=== PATIENT | female | born 1980 | race Caucasian/White ===

== ENCOUNTER 2017-02-04 08:28 | Emergency (ER) | payer OTHER ==
[~2017-02-04] VITALS: Ht 172.7 cm; Wt 117.9 kg
== END 2017-02-04 09:52 | disposition home or self-care (01) ==
LOC: ED 08:28
DX: S90.512A Abrasion, left ankle, initial encounter (principal); S00.81XA Abrasion of other part of head, initial encounter; S09.90XA Unspecified injury of head, initial encounter; E03.9 Hypothyroidism, unspecified; Z98.51 Tubal ligation status; Z90.49 Acquired absence of other specified parts of digestive tract; W01.0XXA Fall on same level from slipping, tripping and stumbling without subsequent striking against object, initial encounter
CPT/HCPCS: 99282

== ENCOUNTER 2019-03-09 11:12 | Emergency (ER) | payer OTHER ==
[~2019-03-09] VITALS: Ht 172.7 cm; Wt 117.9 kg
--- OUTSIDE RECORDS SUMMARY | 2019-03-09 11:14 | XMS ---
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 Shae has no Care Guidelines for this patient. [place] VISIT COUNT (12 MO.) 1 SUREKHA Quiñonez TOTAL 1 NOTE: Visits indicate total known visits. ED/C VISIT TRACKING (12 MO.) 03/09/2019 11:12 SUREKHA Yin OR TYPE: Emergency COMPLAINT: - LEFT ANKLE INJURY INPATIENT VISIT TRACKING (12 MO.) No inpatient visits to display in this time frame [email or web address]
[2019-03-09] MEDS ORDERED: CRUTCH1 EACH (12:52)
== END 2019-03-09 13:40 | disposition home or self-care (01) ==
LOC: ED 11:12
DX: S93.402A Sprain of unspecified ligament of left ankle, initial encounter (principal); E03.9 Hypothyroidism, unspecified; W01.0XXA Fall on same level from slipping, tripping and stumbling without subsequent striking against object, initial encounter
CPT/HCPCS: 73610; 99283-25; A9270

== ENCOUNTER 2019-08-24 06:30 | Day surgery (SDC) | payer OTHER ==
[~2019-08-24] VITALS: Ht 170.2 cm; Wt 122.5 kg
[~2019-08-24 06:30] MED LIST: CRUTCH1 EACH
[2019-08-24] MEDS ORDERED: WELLBUTRIN SR150 MG PO (07:16)
[2019-08-24] MEDS ORDERED: SYNTHROID150 MCG PO (07:16)
--- NOTE | 2019-08-24 08:26 | NUR ---
08/24/19 0826 Susie Borja 0817 PT ARRIVED TO PACU, PT WAKES EASILY TO VERBAL STIMULI AND IS REORIENTED TO PACU. PT FALLS BACK TO SLEEP. VSS. PT ON 3L VIA NC AND RESP EVEN AND UNLABORED. 0821 O2 TURNED OFF AND PT CONTINEUS TO SLEEP. 0824 MD AT BEDSIDE TALKING TO PT.
--- NOTE | 2019-08-24 22:30 | OR ---
[facility] [address] [place], [place] [address] Signed DATE OF OPERATION: 08/24/2019 SURGEON: Remi Quinn MD PREOPERATIVE DIAGNOSES: Clinical treatment for posterior anal fissure (clinically healed), history of rectal bleeding. POSTOPERATIVE DIAGNOSIS: Normal colon to cecum except for hypertrophied anal papillae, no evidence of fissure, polyps, or colitis. PROCEDURE: Total colonoscopy to cecum. ANESTHESIA: Intravenous sedation, fentanyl 150 mcg and Versed 6 mg. INDICATION: This morbidly obese 39-year-old woman is a patient of Dr. Tammy Salas and was seen and evaluated for rectal bleeding and found to have a posterior anal fissure. She was managed with diltiazem, fiber supplements, and so on. Clinical healing has been noted. Since she does still have some episodic rectal bleeding, colonoscopy has been recommended. The risks of bleeding, infection, and perforation related to colonoscopy was reviewed with her, she understands and wished to proceed. FINDINGS: The prep was excellent. Complete colonoscopy was undertaken of the cecum. There was no sign of polyps, diverticular formation, colitis, or cancer. There was a hypertrophied anal papillae, but no sign of fissure or internal hemorrhoidal change. There were some external hemorrhoidal tags however. DESCRIPTION OF PROCEDURE: The patient was brought to the endoscopy suite and placed in lateral decubitus position, given intravenous sedation to the point of slurred speech and nystagmus. Digital rectal examination revealed a nodular change consistent with anal papilla. An Olympus video colonoscope was passed in the rectum and manipulated throughout the colon ultimately intubating the cecum. Ileocecal valve was identified. Irrigation was undertaken. Biopsy forceps was used to elevate the cecal mucosa behind the ileocecal valve, showing no sign of abnormality. The scope was then carefully withdrawn and examination Electronically Signed By: REMI QUINN MD 08/24/19 2230 PATIENT NAME: REINALDO GIRALDO OPERATIVE REPORT DATE OF : 82 REPORT #: [id number] PHYSICIAN: REMI QUINN MD PCP: GUERLINE CRUZ PAC REPORT IS CONFIDENTIAL AND NOT TO BE RELEASED WITHOUT AUTHORIZATION [facility] [address] [place], [place] [address] Signed throughout showed no sign of polyps, diverticular formation, colitis, or cancer. Retroflex view confirmed an anal papilla that was hypertrophied. Careful withdrawal of scope through the anal canal showed no sign of fissure or other acute problem. The scope was removed and the patient was taken to the recovery room in good condition. CONCLUSION DIAGNOSIS: Healed anal fissure, persistent anal papilla, asymptomatic. No evidence of polyps. PLAN: Recommend continued use of high-fiber diet including fiber supplements such as Citrucel. She will return to the ongoing care of Dr. Salas. MD TORITO Spaulding/DWAYNE /[id number] cc: Tammy Salas MD Copies: TAMMY SALAS MD ~ Electronically Signed By: REMI QUINN MD 08/24/19 2230 PATIENT NAME: REINALDO GIRALDO OPERATIVE REPORT DATE OF : 82 REPORT #: [id number] PHYSICIAN: REMI QUINN MD PCP: GUERLINE CRUZ PAC REPORT IS CONFIDENTIAL AND NOT TO BE RELEASED WITHOUT AUTHORIZATION
== END 2019-08-24 09:00 | disposition home or self-care (01) ==
LOC: DS 06:30 → OPS 06:30 → DS 06:45 → OPS 09:00
PROVIDERS: Surgery
PROC: 0DJD8ZZ Inspection of Lower Intestinal Tract, Via Natural or Artificial Opening Endoscopic (ICD-10-PCS; principal; 2019-08-24 06:45)
DX: K64.3 Fourth degree hemorrhoids (principal); K60.2 Anal fissure, unspecified; E03.9 Hypothyroidism, unspecified; F32.9 Major depressive disorder, single episode, unspecified; E66.01 Morbid (severe) obesity due to excess calories; Z79.899 Other long term (current) drug therapy; Z68.41 Body mass index [BMI] 40.0-44.9, adult
CPT/HCPCS: 84703; 99153; G0500; J2250; J3010

== ENCOUNTER 2019-09-06 05:45 | Day surgery (SDC) | payer OTHER ==
[~2019-09-06] VITALS: Ht 172.7 cm; Wt 123.8 kg
--- NOTE | ~2019-09-06 | OR ---
[facility] [address] [place], [place] [address] Draft DATE OF OPERATION: 09/06/2019 SURGEON: Dawn Steven DO PREOPERATIVE DIAGNOSES: 1. Pelvic organ prolapse, symptomatic. 2. Rectocele. 3. Obesity. POSTOPERATIVE DIAGNOSES: 1. Pelvic organ prolapse, symptomatic. 2. Rectocele. 3. Obesity. PROCEDURES PERFORMED: 1. Total laparoscopic hysterectomy. 2. Bilateral salpingectomy. 3. Cystoscopy. 4. Posterior repair. 5. Perineorrhaphy. BLIND INSTALLER: Gabo Corrales MD. ANESTHESIA: General. ESTIMATED BLOOD LOSS: 150 mL. SPECIMEN: Uterus, cervix, and bilateral fallopian tubes. FINDINGS: Normal external genitalia with hemorrhoids, gaping introitus with distal rectocele. The apex remains very well supported. Normal-appearing cervix. On laparoscopy, normal liver, uterus and bilateral ovaries. Fallopian tubes status post tubal ligation bilaterally. excellent apical support noted. Normal bladder with bilateral ureteral jets. Completion of posterior repair shows rectocele resolved in the vaginal hiatus, 2.5 fingerbreadths in width. PATIENT NAME: REINALDO ORTIZ OPERATIVE REPORT DATE OF : 82 REPORT #: [id number] PHYSICIAN: DAWN STEVEN DO PCP: GUERLINE CRUZ PAC REPORT IS CONFIDENTIAL AND NOT TO BE RELEASED WITHOUT AUTHORIZATION [facility] [address] [place], [place] [address], [place] [address] Draft COMPLICATIONS: None. INDICATION: Ms. Ortiz is a pleasant 39-year-old white female, who presents with longstanding symptomatic pelvic organ prolapse. She is splinting with each bowel movement and has a notable distal rectocele. The patient has completed fertility and desires definitive treatment with hysterectomy and posterior repair. Risks, benefits, and alternatives were discussed in detail. The patient understands and wished to proceed with the procedure. TECHNIQUE: The patient was taken to the operating room where a time-out was performed to confirm correct patient and correct procedure. General anesthesia was adequately established. The patient was prepped and draped in the dorsal lithotomy position with her feet in Yellofin stirrups. ICPs were on running. Patient received Ancef 3 g preoperatively as well as heparin preoperatively. A Jo catheter was inserted. Weighted speculum was placed in vagina and the anterior lip of the cervix was grasped with Allis clamp. Excellent apical support was noted. The cervix was gently dilated using Hegar dilators and a [employer] uterine manipulator was placed. Attention was then turned to the abdomen. The base of the umbilicus was infiltrated with 0.25% Marcaine with epinephrine and a 5 mm stab incision was made at the base of the umbilicus. A 5 mm port was placed under direct visualization without complication. Pneumoperitoneum was used established and survey of the abdomen pelvis was performed. A 5 mm assist port was placed in the left lower quadrant in direct visualization and 8 mm expanding assist port was placed in the right lower quadrant under direct visualization. Evidence of prior bilateral tubal ligation was noted. LigaSure device was then used to divide the fallopian tube from the mesosalpinx on the left side. The fallopian tube was then divided and delivered through the trocar. This process was repeated on the right side. The left utero-ovarian ligament was fulgurated and divided with good hemostasis. The left round ligament was then fulgurated and divided with good hemostasis. The leaves of the broad ligament were then divided with the anterior leaf divided down and the bladder pushed well below the cervical cuff. The posterior leaf of the broad ligament was then divided past the uterosacral ligament to the midline. Uterine vessels were then identified, fulgurated and divided. Small amount of oozing was noted from the left uterine artery that quickly resolved with additional fulguration. The process was repeated on the right side with division and fulguration of the utero-ovarian ligament, the round ligament, and division of the leaves of the broad ligament. The right uterine vessels were fulgurated and divided with good hemostasis. The bladder was again pushed well below the cuff and decision was made to PATIENT NAME: REINALDO ORTIZ OPERATIVE REPORT DATE OF : 82 REPORT #: [id number] PHYSICIAN: DAWN STEVEN DO PCP: GUERLINE CRUZ PAC REPORT IS CONFIDENTIAL AND NOT TO BE RELEASED WITHOUT AUTHORIZATION [facility] [address] [place] [id number] Draft proceed with colpotomy. The Sonicision device was inserted and used to perform circumferential colpotomy using the green edge of the cervical cup as a guide. The uterus and cervix were then delivered through the vagina and sent to pathology for further evaluation. The vagina was stuffed with a wet lap inside of a glove to maintain pneumoperitoneum. Attention was then turned back to the abdomen. A small amount of oozing was noted along the right edge of the vaginal cuff. This was made hemostatic with the LigaSure device. The colpotomy was then closed using V-Loc suture with an Endostitch device with careful attention to incorporate the uterosacral ligaments bilaterally as well as the vaginal epithelium with each suture. Excellent closure. Hemostasis and apical support were noted at this time. Pneumoperitoneum was reduced and trocars removed. Trocar sites were repaired using 4-0 Monocryl with excellent hemostasis and cosmesis. Attention was then turned to cystoscopy. The Jo catheter was removed. A cystoscope was then placed into the urethral meatus and advanced under direct visualization into the bladder. Normal bladder and bilateral ureteral jets were noted. The bladder was drained. Jo catheter was reinserted. Attention was then turned to the posterior repair. The patient with again excellent apical and anterior compartment support. Significant posterior rectocele was very distal with a gaping introitus noted. The perineal body was then infiltrated with 0.25% Marcaine with epinephrine and an inverted triangle of skin overlying the perineum was excised. The vaginal epithelium was then carefully dissected and incised dissecting the bladder away from the posterior vaginal wall. Blunt dissection was then used to mobilize the rectum and vaginal tissue. A very good support tissue was noted laterally and this was plicated in the midline using multiple sutures of 0 Vicryl in simple interrupted sutures. Excess vaginal tissue was trimmed. The perineal body was plicated in the midline and vaginal epithelium was then reapproximated using 2-0 Vicryl in a running nonlocked manner. The perineal incision was then reapproximated using 2-0 Vicryl after insertion of FloSeal into the space between the vagina and the rectum. Excellent hemostasis was appreciated and the rectocele was resolved. The vaginal hiatus was 2.5 fingerbreadths in width. The patient was then taken to the PACU in good and stable condition. After excellent hemostasis, a rectal exam was performed that demonstrated no sutures in the rectum or any other masses. Sponge, needle, and instrument counts were correct x2 at the end of the procedure. Dr. Corrales was present, participated in all portions of procedure. Dawn Steven, DO PATIENT NAME: REINALDO ORTIZ OPERATIVE REPORT DATE OF : 82 REPORT #: [id number] PHYSICIAN: DAWN STEVEN DO PCP: GUERLINE CRUZ PAC REPORT IS CONFIDENTIAL AND NOT TO BE RELEASED WITHOUT AUTHORIZATION [address] [place] [address] Draft JJosefaW/COLEL /[id number] Copies: ~ PATIENT NAME: REINALDO ORTIZ OPERATIVE REPORT DATE OF : 82 REPORT #: [id number] PHYSICIAN: DAWN STEVEN DO PCP: GUERLINE CRUZ PAC REPORT IS CONFIDENTIAL AND NOT TO BE RELEASED WITHOUT AUTHORIZATION
[~2019-09-06 05:45] MED LIST changes: +SYNTHROID150 MCG PO; +WELLBUTRIN SR150 MG PO
--- NOTE | 2019-09-06 09:50 | NUR ---
09/06/19 0950 Yenny Poe 0944 PATIENT ARRIVES TO PACU AWAKE BUT DROWSY. RESP EVEN AND UNLABORED, MASK AT 6 LITERS. PATIENT REPORTS CRAMPING PAIN. TOLERABLE. 0948 OXYGEN MASK OFF. ROOM AIR SATS >98%.
--- NOTE | 2019-09-06 10:37 | NUR ---
PT ARRIVES TO DS RM 5 FROM PACU AWAKE AND ALERT. PT RESP EVEN AND UNLABORED, SATS GREATER THAN 94% ON RA. PT RATES PAIN 5-6/10 AND "POOP CRAMPS." PT STATES THAT BOTTOM FEELS WET AND IS NERVOUS ABOUT "HAVING AN ACCIDENT" PT EDUCATED ABOUT HODGES CATHETER IN PLACE. LIGHTS DIMMED. SCD'S IN PLACE AND PUMPING. CALL LIGHT WITHIN REACH. PT PROVIDED ICED WATER AND TELLER SODA PER REQUEST.
[2019-09-06] MEDS ORDERED: PERCOCET 5-3251 EACH PO (11:15)
[2019-09-06] MEDS ORDERED: MOTRIN IB200 MG PO (11:17)
--- NOTE | 2019-09-06 11:25 | NUR ---
PT RESTING WITH EYES CLOSED ON ENTRANCE TO ROOM. PT EASILY AROUSES WITH VERBAL STIMULI. PT STATES FEELING SOME NAUSEA AND RATES PAIN 6/10 AND TOLERABLE AT THIS TIME, DENIES PAIN MEDS. PT ENC TO USE CALL LIGHT IF PAIN INCREASES. 1140: HODGES CATHETER DRAINED OF APPROX 50 MLS CONCENTRATED YELLOW URINE. HODGES BALLOON EMPTIED OF APPROX 9 MLS CLEAR FLUID AND CATHETER REMOVED. PT TOLERATES WELL. CALL LIGHT WITHIN REACH.
--- NOTE | 2019-09-06 12:29 | NUR ---
PATIENT AWAKE, REPORTS PAIN 6/10 ON PAIN SCALE IN PELVIC REGION, AND DESCRIBES PAIN SHARP. DR. PERKINS INTO ROOM, VERBALIZED OKAY TO ADMINISTER PO IBUPROFEN AND OTHER PAIN MED PER JUN. PROVIDED PATIENT WTIH PUDDING. DISCUSSED WITH DR. PERKINS URINE OUTPUT. DR. PERKINS VERBALIZED NO MORE IV FLUIDS, TO ENCOURAGE PATIENT TO DRINK. VSS. TRANG PAD HAS SMALL AMOUNT OF DRAINAGE. NO OTHER NEEDS AT THIS TIME. CALL LIGHT WITHIN REACH. ANSWERED QUESTIONS AND CONCERNS.
--- NOTE | 2019-09-06 13:14 | NUR ---
ASSISTED PATIENT TO SIT UP, SOME COMPLAINTS OF DIZZINESS THAT RESOLVED PATIENT SAT AT BEDSIDE. EDUCATED PATIENT WITH SPLINTING TO DECREASE PAIN WITH TRANSFERS. PATIENT DEMONSTRATED UNDERSTANDING. AMBULATED TO BATHROOM, STEADY ON FEET.
--- NOTE | 2019-09-06 13:38 | NUR ---
PT UNABLE TO VOID BUT STATES "BLEEDING." HAT HAS RED BLOOD AND SMALL CLOT PRESENT, PT EDUCATED ABOUT POST OP BLEEDING. PT BACK TO BED, STATES HAVING A SMALL AMOUNT OF NAUSEA AND RATES PAIN 7/10. PT DENIES MEDICATIONS AT THIS TIME. WILL USE CALL LIGHT FOR ANY NEEDS.
--- NOTE | 2019-09-06 14:30 | NUR ---
PT USES CALL LIGHT TO NOTIFY RN OF URGE TO VOID. STEADY GAIT WITH RN ASSIST. PT ABLE TO VOID 200MLS RED URINE, BACK TO ROOM. PT DRESSES SELF IN PREPARATION FOR DC. 1440: DC INSTRUCTIONS GIVEN, ALL QUESTIONS ADDRESSED. PAIN PRESCRIPTION IN DC FOLDER. PT SPOUSE NOTIFIED OF DC. PT DC'S VIA WC TO PERSONAL VEHICLE AT MAIN HOSPITAL ENTRANCE.
--- NOTE | 2019-09-10 10:44 | PATH ---
[facility] [address] [place], [place] [address] Signed SPECIMEN(S): A CERVIX, UTERUS AND TUBES SPECIMEN SOURCE: A. CERVIX, UTERUS AND TUBES CLINICAL HISTORY: Pelvic organ prolapse. TLH, BS, cystoscopy with possible rectocele. FINAL PATHOLOGIC DIAGNOSIS: Uterus, cervix, and bilateral fallopian tubes, hysterectomy and bilateral salpingectomy: - Cervix: No histopathologic abnormality. - Endometrium: Proliferative endometrium. - Myometrium: No histopathologic abnormality. - Serosa: No histopathologic abnormality. - Fallopian tubes: Changes consistent with prior tubal ligation. - Negative for malignancy. NAL:cml:C2NR MICROSCOPIC EXAMINATION: Histologic sections of all submitted blocks are examined by light microscopy. These findings, together with the gross examination, support the pathologic diagnosis. GROSS DESCRIPTION: The specimen, labeled "BB, cervix, uterus and bilateral fallopian tubes," is received in formalin and consists of 5.8 cm gkacv-ae-tltli, 4.0 cm anterior-posterior, 7.8 cm superior-inferior uterus with attached, up to 2.5 cm cervix. The serosal surface is pink-harrison, smooth. The uterus weighs 145 g. The ectocervix is pink-harrison, focally congested and measures 3.3 x 3.0 cm. It shows a slit-like opening that measures 1.1 cm. Sectioning through the cervix reveals pink-harrison, homogenous tissue. The endometrial cavity measures 3.7 x 2.8 cm. It is lined with pink-harrison, smooth and shaggy endometrium. Sectioning through the myometrium reveals a trabeculated surface. No masses or abnormalities are grossly identified. The myometrium measures 1.3 cm in thickness. The endometrium measures up to 0.3 cm in thickness. from the uterus, within the container are two undesignated fallopian tubes. Both of them show fimbria and violaceous, smooth serosa. They are PATIENT NAME: REINALDO GIRALDO PATHOLOGY DATE OF : 82 REPORT #: [id number] PHYSICIAN: VERITO PATHOLOGY PCP: GUERLINE CRUZ PAC REPORT IS CONFIDENTIAL AND NOT TO BE RELEASED WITHOUT AUTHORIZATION [facility] [address] [place], [place] [address] Signed previously ligated. The first fallopian tube measures 6.2 x 0.9 cm. It shows a paratubal cyst that measures 0.3 cm in greatest dimension. The cyst is filled with a clear fluid. The second fallopian tube measures 5.7 x 0.8 cm. The second tube is inked. Sectioning through both fallopian tubes is unremarkable. Cassette Summary: (A1) cervix, automotive sales representative sections, posterior inked (A2) endomyometrium, automotive sales representative sections (A3) fallopian tubes, automotive sales representative sections JS (under the direct supervision of a pathologist) The Gross Description was prepared using a voice recognition system. The report was reviewed for accuracy; however, sound-alike word errors, addition and/or deletions may occur. If there is any question about this report, please contact Client Services. PERFORMING LABORATORY: The technical component was performed by [facility], [address] [place] [id number] (Fitness Management Director: Marlin Spencer MD; CLIA# [id number]). [facility] was [facility], [address], [address] [address] (CLIA# [id number]). Diagnostician: Lucero Jurado MD Pathologist Electronically Signed 09/10/2019 Copies: ~ PATIENT NAME: REINALDO GIRALDO PATHOLOGY DATE OF : 82 REPORT #: [id number] PHYSICIAN: VERITO PATHOLOGY PCP: GUERLINE CRUZ PAC REPORT IS CONFIDENTIAL AND NOT TO BE RELEASED WITHOUT AUTHORIZATION
== END 2019-09-06 15:00 | disposition home or self-care (01) ==
LOC: DS 05:45
PROVIDERS: Obstetrics & Gynecology
PROC: 0JQC0ZZ Repair Pelvic Region Subcutaneous Tissue and Fascia, Open Approach (ICD-10-PCS; principal; 2019-09-06 06:45)
PROC: 0UT94ZZ Resection of Uterus, Percutaneous Endoscopic Approach (ICD-10-PCS; 2019-09-06 06:45)
PROC: 0UT74ZZ Resection of Bilateral Fallopian Tubes, Percutaneous Endoscopic Approach (ICD-10-PCS; 2019-09-06 06:45)
DX: N81.6 Rectocele (principal); N81.89 Other female genital prolapse; E03.9 Hypothyroidism, unspecified; E66.01 Morbid (severe) obesity due to excess calories; Z79.899 Other long term (current) drug therapy; Z98.51 Tubal ligation status; Z68.41 Body mass index [BMI] 40.0-44.9, adult
CPT/HCPCS: 00840; J0330; J0690; J1100; J1644; J1885; J2405; J3010; J3475; J7121

== ENCOUNTER 2021-08-27 09:38 | Emergency (ER) | payer OTHER ==
[~2021-08-27] VITALS: Ht 172.7 cm; Wt 132.5 kg
[~2021-08-27 09:38] MED LIST changes: +ACETAMINOPHEN500 MG PO; +AMOX TR-K CLV1 EAC1 PO; +CITRUCEL479 GM PO; +DILTIAZEM HCL10 GM TOP; +IBUPROFEN600 MG PO; +MOTRIN IB200 MG PO; +MULTI-VITAMIN1 EACH PO; +OXYCODON-ACETA1 EAC2 PO; +PERCOCET 5-3251 EACH PO
[2021-08-27] MEDS ORDERED: FLUOXETINE HCL20 MG PO (09:59)
== END 2021-08-27 11:17 | disposition home or self-care (01) ==
LOC: ED 09:38
DX: S52.122A Displaced fracture of head of left radius, initial encounter for closed fracture (principal); E03.9 Hypothyroidism, unspecified; Z79.899 Other long term (current) drug therapy; W10.9XXA Fall (on) (from) unspecified stairs and steps, initial encounter
CPT/HCPCS: 29105; 73080; 73090; 99283-25

== ENCOUNTER 2021-09-04 06:20 | Day surgery (SDC) | payer OTHER ==
[~2021-09-04] VITALS: Ht 172.7 cm; Wt 129.5 kg
[~2021-09-04 06:20] MED LIST changes: +FLUOXETINE HCL20 MG PO
[2021-09-04] MEDS ORDERED: HYDROCODON-ACE1 EA10 PO (09:35)
--- NOTE | 2021-09-04 09:39 | NUR ---
09/04/21 0939 Irma Webster 0932- PT ARRIVES TO PACU NONAROUSABLE TO STIMULI WITH AN OPA IN PLACE. RESP EVEN AND UNLABORED. OXYGEN SAT HIGH 90'S TO 100% ON 6L VIA MASK. PT'S LEFT ARM ELEVATED ON PILLOWS. ICE PACK APPLIED.
--- NOTE | 2021-09-04 10:18 | NUR ---
1005 PT BACK TO DS FROM PACU AWAKE AND ALERT, AT BED SIDE. PT DENIES PAIN REPORTS LT ARM IS COMPLETLY NUMB. STRONG LT RADIAL PULSE CAP REFILL LESS THAN 1 SECOND SHE IS NOT ABLE TO MOVE FINGERS ON LT HAND DUE TO BLOCK. PT DENIES NAUSEA, SHE IS TAKING SIPS OF WATER TOLERATES WELL. WARM BLANKETS GIVEN. CALL LIGHT WITHIN REACH.
--- NOTE | 2021-09-04 11:21 | NUR ---
1115 PT COMPLAINS OF NAUSEA, KARLA SVP RESEARCH AND STRATEGIC ANALYSIS NOTIFIED ORDERED INAPSINE TO BE GIVEN.
--- NOTE | 2021-09-04 12:36 | NUR ---
1135 PT REPORTS NAUSEA IS MUCH BETTER, SHE WAS ABLE TO EAT A CRACKER AND DRINK WATER. 1200 PT UP TO THE BATHROOM WITH MINIMAL ASSIST, SHE WAS ABLE TO VOID, SHE REPORTS READINESS TO GO HOME. SHE DRESSED WITH HELP FROM HER . DISCHARGE INSTRUCTIONS GIVEN TO PT AN BOTH VOICED UNDERSTANDING.
--- NOTE | 2021-09-07 07:05 | OR ---
[facility] [address] [place], [place] [address] Signed DATE OF OPERATION: 09/04/2021 SURGEON: Ness Last MD PREOPERATIVE DIAGNOSIS: Radial head fracture, left. POSTOPERATIVE DIAGNOSIS: Radial head fracture, left. PROCEDURE PERFORMED: Partial excision of radial head. MACHINE CLOTHING REPLACER: None. ANESTHESIA: General. BLOOD LOSS: None. TOURNIQUET TIME: 63 minutes. BRIEF HISTORY: Reinaldo is a 41-year-old female, who suffered a fall out of her camper. She fell on her elbow and had significant pain. Radiographs revealed a significant radial head fracture. This involved about 50% of the radial head with two major fragments laterally. Risks and benefits of operative treatment because the fracture was displaced and involved more than 30% of the radial head. She elected to proceed. DESCRIPTION OF PROCEDURE: Once consent was obtained, she was taken to the operating room after adequate anesthesia. She was placed on the operating table. All downside pressure points well padded. The arm was prepped and draped in a standard sterile fashion. A sterile proximal arm tourniquet was placed. The arm was exsanguinated using Esmarch bandage. Tourniquet inflated to 200 mmHg. Lateral approach to the elbow was taken through skin and subcutaneous tissue. The extensor wad was incised and the capsule was incised. The hematoma was then evacuated. The capsule was then elevated anteriorly and posteriorly Electronically Signed By: NESS LAST MD 09/07/21 0705 PATIENT NAME: REINALDO GIRALDO OPERATIVE REPORT DATE OF : 82 REPORT #: [id number] PHYSICIAN: NESS LAST MD PCP: GUERLINE CRUZ PAC REPORT IS CONFIDENTIAL AND NOT TO BE RELEASED WITHOUT AUTHORIZATION [facility] [address] [place], [place] [address] Signed to allow visualization of the fracture fragment. The radial head was split basically into three fragments. The medial half was intact. The posterior half was split into two fragments. The posterior fragment was basically nondisplaced and stable. The anterior fragment was depressed about 5 mm to 6 mm, this was unstable and the lateral cortex was pretty much impacted. We elevated that fragment after loosening it from its bed. This was elevated back until it was even with the other fragments and pinned using 1.25 K-wires. There was no bone underlying it and the fragment itself was only about 3 mm thick. I attempted to put two 2.5 mm screws in it to hold it. We then put a radial neck or radial head plate underneath that to buttress it. However, we were unable to get the screws stable enough and the fragment was still grossly unstable. This was secondary to the small thickness of it and the relatively poor bone quality. After multiple attempts, I decided that we were unable to fix that portion of the radial head in a stable fashion. We then removed the plate and the screws. We removed the piece of bone. This represented about 20% of the total surface area of the radial head. We elected to do just a partial excision. The wound was then copiously irrigated with normal saline. The capsule was closed with 0-Vicryl. The subcutaneous tissue was closed in layers using 2-0 Monocryl and 2-0 Stratafix, the skin with 3-0 StrataFix and LiquiBand. It was dressed with an Allevyn dressing and an Paul wrap. She was placed back into her hinged elbow brace. She tolerated the procedure well. All sponge, needle, and instrument counts were correct. Ness Last MD BA/COLEL /[id number] Copies: ~ Electronically Signed By: NESS LAST MD 09/07/21 0705 PATIENT NAME: REINALDO GIRALDO OPERATIVE REPORT DATE OF : 82 REPORT #: [id number] PHYSICIAN: NESS LAST MD PCP: GUERLINE CRUZ PAC REPORT IS CONFIDENTIAL AND NOT TO BE RELEASED WITHOUT AUTHORIZATION
== END 2021-09-04 12:15 | disposition home or self-care (01) ==
LOC: DS 06:20
PROVIDERS: ATTEND Specialist
PROC: 0PBJ0ZZ Excision of Left Radius, Open Approach (ICD-10-PCS; principal; 2021-09-04 07:55)
DX: S52.125A Nondisplaced fracture of head of left radius, initial encounter for closed fracture (principal); W19.XXXA Unspecified fall, initial encounter
CPT/HCPCS: 64417; 76942; J0690; J1100; J1790; J1885; J2001; J2250; J2405; J2704; J2795; J7121

== ENCOUNTER 2023-04-15 07:38 | Day surgery (SDC) | payer OTHER ==
[~2023-04-15] VITALS: Ht 172.7 cm; Wt 127.3 kg
[~2023-04-15 07:38] MED LIST changes: +HYDROCODON-ACE1 EA10 PO
[2023-04-15 07:58] VITALS: BP 129/90
--- NOTE | 2023-04-15 10:19 | NUR ---
04/15/23 Salbador Lundberg 1016 PATIENT ARRIVED INTO PACU WITH HER EYES OPEN AND ABLE TO ANSWER QUESTIONS. DENIES PAIN AND NAUSEA AT THIS TIME. WHEN OFFERED TO SIT UP PATIENT REQUESTED TO REMAIN ON HER SIDE FOR A LITTLE LONGER. PATIENT DID FALL BACK ASLEEP AFTER CONVERSATION PAUSED. PATIENT 02 SAT ON ROOM AIR IS 99%
[2023-04-15 10:56] VITALS: BP 137/93
--- NOTE | 2023-04-16 10:03 | OR ---
[facility] [address] [place], [place] [address] Signed DATE OF OPERATION: 04/15/2023 SURGEON: Remi Quinn MD PREOPERATIVE DIAGNOSES: 1. Persistent substernal burning pain suggestive of gastroesophageal reflux. 2. Morbid obesity, weight 280 pounds. POSTOPERATIVE DIAGNOSIS: Hiatal hernia with ulcerative distal esophagitis. PROCEDURE: Esophagogastroduodenoscopy with biopsy. ANESTHESIA: Intravenous sedation; fentanyl 100 mcg and Versed 5 mg. INDICATION: This morbidly obese 280-pound woman is a patient of Guerline Steven. She has complaints of substernal burning pain. She is known to me from the past having undergone lateral internal sphincterotomy and hemorrhoidectomy. She describes her symptoms as "bile reflux." She has taken Tums and Prilosec with only marginal improvement. She has no associated dysphagia and no family history of esophageal cancer. She does have added stress recently with her children going into the and this worsens her symptoms as well. She is admitted at this time to undergo upper endoscopy to better characterize her current problem. She understands the risk of bleeding, infection, and perforation. FINDINGS: Distal ulcerative esophagitis was noted. There was no sign of March's epithelium proper. There was no stricture or neoplasm. The stomach had mild antral gastritis. The duodenum was normal. CLOtest was negative. Hiatal hernia was confirmed no doubt accounting for her reflux symptoms in conjunction with her excessive weight. DESCRIPTION OF PROCEDURE: The patient was brought to the endoscopy suite and placed in the lateral decubitus position, given intravenous sedation to the point of slurred speech and nystagmus. Full cardiopulmonary monitoring was maintained. A bite block was placed. She underwent lidocaine hypopharyngeal anesthesia. An Olympus video upper endoscope was passed in the hypopharynx. The vocal cords were visualized as normal. The scope was advanced to the Electronically Signed By: REMI QUINN MD 04/16/23 1003 PATIENT NAME: REINALDO GIRALDO OPERATIVE REPORT DATE OF : 82 REPORT #: [id number] PHYSICIAN: REMI QUINN MD PCP: GUERLINE CRUZ PAC REPORT IS CONFIDENTIAL AND NOT TO BE RELEASED WITHOUT AUTHORIZATION [facility] [address] [place], [place] [address] Signed esophagus. Passage through this area was a bit more delayed than usual for reasons that were unclear. There was no actual stricture. The scope was advanced into the esophagus and throughout its length it was normal except in the distal portion where there was ulcerative esophagitis change with linear inflammatory changes. Scope was passed to the stomach which was insufflated with air. There was no evidence of bile or bile reflux gastritis. Antral motility was normal. Rugal folds were normal. Scope was passed through the pylorus, which was normal. Scope was passed through the pylorus into the duodenum, which was normal. Biopsies were taken of the duodenum to assess for celiac disease. The scope was withdrawn and biopsy was then taken of the antrum for both ETHAN and pathologic testing. Retroflexed view upon withdrawal of the scope showed a moderate-sized hiatal hernia. The scope was straightened withdrawn and biopsies then taken of the distal esophageal mucosa. Further withdrawal allowed for biopsy of the mid esophagus. The scope was removed and the patient was taken to the recovery room in good condition. CONCLUDING DIAGNOSIS: Distal ulcerative esophagitis related to hiatal hernia and excessive weight. PLAN: Weight loss efforts need to be initiated. Anti-reflux surgery would be a consideration at a lower weight. We will prescribe Prilosec 20 mg p.o. b.i.d. and Carafate slurry 1 g p.o. q.i.d. and see her back in the office in six weeks more or less and assess her progress. MD TORITO Spaulding/DWAYNE /[id number] cc: VON Ferrari DO Copies: GUERLINE CRUZ PAC Electronically Signed By: REMI QUINN MD 04/16/23 1003 PATIENT NAME: REINALDO GIRALDO OPERATIVE REPORT DATE OF : [birth year] REPORT #: [id number] PHYSICIAN: REMI QUINN MD PCP: GUERLINE CRUZ PAC REPORT IS CONFIDENTIAL AND NOT TO BE RELEASED WITHOUT AUTHORIZATION [address] [address] Signed DAWN STEVEN (JEFF) DO ~ Electronically Signed By: REMI QUINN MD 04/16/23 1003 PATIENT NAME: REINALDO GIRALDO OPERATIVE REPORT DATE OF : [birth year] REPORT #: [id number] PHYSICIAN: REMI QUINN MD PCP: GUERLINE CRUZ PAC REPORT IS CONFIDENTIAL AND NOT TO BE RELEASED WITHOUT AUTHORIZATION
--- NOTE | 2023-04-20 16:12 | PATH ---
[facility] [address] [facility] [place], [place] [address] Signed THIS IS AN ADDENDUM REPORT SPECIMEN(S): A DUODENAL BIOPSY SPECIMEN(S): B ANTRUM/PYLORUS BIOPSY SPECIMEN(S): C LOWER ESOPHAGEAL BIOPSY SPECIMEN(S): D MIDDLE ESOPHAGEAL BIOPSY SPECIMEN SOURCE: A. DUODENAL BIOPSY B. ANTRUM/PYLORUS BIOPSY C. LOWER ESOPHAGEAL BIOPSY D. MIDDLE ESOPHAGEAL BIOPSY CLINICAL HISTORY: GERD, substernal burning FINAL PATHOLOGIC DIAGNOSIS: A. Duodenal biopsy: - Benign duodenal mucosa, negative for specific diagnostic abnormality. B. Antrum/pylorus biopsy: - Benign gastric-type mucosa with focal slight chronic inflammation. - Negative for evidence of Helicobacter organisms on routine HE-stained sections. C. Lower esophageal biopsy: - Benign esophageal and gastric-type mucosa with prominent acute and chronic inflammation. - Negative for specialized intestinal metaplasia or dysplasia. - Negative for increased epithelial eosinophils within the esophageal epithelium. D. Middle esophageal biopsy: - Benign esophageal mucosa, negative for increased epithelial eosinophils. JVR:rigoberto MICROSCOPIC EXAMINATION: Histologic sections of all submitted blocks are examined by light microscopy. These findings, together with the gross examination, support the pathologic diagnosis. GROSS DESCRIPTION: A. The specimen, labeled and designated "Edenilson Ortiz, " and designated on the requisition "duodenum (NOS) biopsy," is received in formalin and consists of PATIENT NAME: REINALDO ORTIZ PATHOLOGY DATE OF : 82 REPORT #: [id number] PHYSICIAN: VERITO JUAREZ PCP: GUERLINE CRUZ PAC REPORT IS CONFIDENTIAL AND NOT TO BE RELEASED WITHOUT AUTHORIZATION [facility] [address] [place], [place] [address] Signed two harrison soft tissue fragments measuring 0.3 to 0.4 cm, both specimens are submitted entirely in (A1). B. The specimen, labeled and designated "Ortiz, B, " and designated on the requisition "stomach, antrum/pylorus biopsy," is received in formalin and consists of one harrison soft tissue fragment measuring 0.5 cm, the specimen is submitted entirely in (B1). C. The specimen, labeled and designated "Ortiz, B, " and designated on the requisition "esophagus, lower esophagus biopsy," is received in formalin and consists of five harrison-brown soft tissue fragments measuring 0.2 to 0.6 cm, all specimens are submitted entirely in (C1). D. The specimen, labeled and designated "Ortiz, B, " and designated on the requisition "esophagus, middle esophagus biopsy," is received in formalin and consists of two harrison-white soft tissue fragments measuring 0.4 to 0.7 cm, both specimens are submitted entirely in (D1). MMA (under the direct supervision of a pathologist) The Gross Description was prepared using a voice recognition system. The report was reviewed for accuracy; however, sound-alike word errors, addition and/or deletions may occur. If there is any question about this report, please contact Client Services. PERFORMING LABORATORY: Technical component was performed by [facility], [address] [place] [id number] (CLIA# [id number]). Professional interpretation was performed by [facility], [address] [place] [id number] (CLIA#: [id number]). ADDITIONAL NOTES: Immunohistochemical and/or in situ hybridization studies were performed on this case with the appropriate positive controls that react as expected. This test was developed, and its performance characteristics determined by [facility]. It has not been cleared or approved by the U.S. Food and Drug Administration. The FDA has determined that such clearance or approval is not necessary. This test is used for clinical purposes. It should not be regarded as investigational or for research. [facility] is certified under the Clinical Laboratory Improvement Amendments of 1988 (CLIA) as qualified to perform high complexity clinical laboratory testing. This assay has not been validated for specimens that have been decalcified. PATIENT NAME: REINALDO ORTIZ PATHOLOGY DATE OF : 82 REPORT #: [id number] PHYSICIAN: VERITO JUAREZ PCP: GUERLINE CRUZ PAC REPORT IS CONFIDENTIAL AND NOT TO BE RELEASED WITHOUT AUTHORIZATION [address] [address] Signed Professional interpretation was performed by [facility], [address] [place] [address] [address] [place] [address] (CLIA#: [id number]). REASON FOR ADDENDUM: The purpose of the addendum is to report the result of Helicobacter pylori immunostain on the antrum/pylorus biopsy. ADDENDUM COMMENT: A Helicobacter pylori immunostain is performed with appropriate controls on block B1 and is negative for stainable organisms. The original diagnostic features remain unchanged. JVR:tamara Diagnostician: Tu Rizo MD Pathologist Electronically Signed 04/20/2023 Copies: ~ PATIENT NAME: REINALDO ORTIZ PATHOLOGY DATE OF : 82 REPORT #: [id number] PHYSICIAN: VERITO PATHOLOGY PCP: GUERLINE CRUZ PAC REPORT IS CONFIDENTIAL AND NOT TO BE RELEASED WITHOUT AUTHORIZATION
== END 2023-04-15 11:04 | disposition home or self-care (01) ==
LOC: DS 07:38 → OPS 07:38 → DS 09:30 → OPS 09:30
PROVIDERS: ATTEND Surgery
PROC: 0DB68ZX Excision of Stomach, Via Natural or Artificial Opening Endoscopic, Diagnostic (ICD-10-PCS; 2023-04-15)
PROC: 0DB28ZX Excision of Middle Esophagus, Via Natural or Artificial Opening Endoscopic, Diagnostic (ICD-10-PCS; 2023-04-15)
PROC: 0DB38ZX Excision of Lower Esophagus, Via Natural or Artificial Opening Endoscopic, Diagnostic (ICD-10-PCS; 2023-04-15)
PROC: 0DB98ZX Excision of Duodenum, Via Natural or Artificial Opening Endoscopic, Diagnostic (ICD-10-PCS; principal; 2023-04-15 09:30)
DX: K22.10 Ulcer of esophagus without bleeding (principal); K44.9 Diaphragmatic hernia without obstruction or gangrene; E66.01 Morbid (severe) obesity due to excess calories; E03.9 Hypothyroidism, unspecified; K21.00 Gastro-esophageal reflux disease with esophagitis, without bleeding; F32.A Depression, unspecified
CPT/HCPCS: 99153; G0500; J2250; J3010; J7121